=== PATIENT | female | born 1950 | race Caucasian/White ===

== ENCOUNTER 2019-03-05 10:10 | Emergency (ER) | payer MEDICARE ==
[2019-03-05] MEDS ORDERED: Albuterol/Ipratropium 3.0-0.5 MG/3 ML Neb Soln NEB ONE (10:55)
--- NOTE | 2019-03-05 11:01 | EDM.PDOC ---
ED HPI GENERAL MEDICAL PROBLEM - General Chief Complaint: Respiratory Problem Stated Complaint: PNEUMONIA Time Seen by Provider: 03/05/19 10:59 Source of Information: Reports: Patient History Limitations: Reports: No Limitations - History of Present Illness INITIAL COMMENTS - FREE TEXT/NARRATIVE: pt was seen yesterday and was told she had a pneumonia. She was placed on predisone and a z pack, Onset: Gradual, Other (pt did not sleep all nite. ) Duration: Hour(s): Location: Reports: Chest Associated Symptoms: Reports: Cough, Diaphoresis, Fever/Chills, Malaise, Shortness of Breath - Related Data Allergies Allergy/AdvReac Type Severity Reaction Status Date / Time codeine Allergy Cannot Verified 03/05/19 10:55 Remember morphine Allergy Cannot Verified 03/05/19 10:55 Remember Home Meds: Home Meds Albuterol Sulfate [Albuterol Sulfate Hfa] 1 - 2 puff IN ASDIRECTED PRN 03/05/19 [History] Aspirin 81 mg PO DAILY 03/05/19 [History] Azithromycin 250 mg PO DAILY 03/05/19 [History] Cholecalciferol (Vitamin D3) [Vitamin D3] 1,000 unit PO DAILY 03/05/19 [History] [place]-3/DHA/Epa/Fish Oil [[place]-3 Fish Oil 1,000 MG Sfgl] 1,000 mg PO DAILY 06/19 [History] Simvastatin 10 mg PO DAILY 03/05/19 [History] Ubidecarenone [Coq-10] 100 mg PO DAILY 03/05/19 [History] hydroCHLOROthiazide [Hydrochlorothiazide] 12.5 mg PO DAILY 03/05/19 [History] predniSONE 20 mg PO DAILY 03/05/19 [History] ED ROS GENERAL - Review of Systems Review Of Systems: See Below Constitutional: Reports: Fever, Chills, Malaise HEENT: Reports: No Symptoms Respiratory: Reports: Shortness of Breath, Wheezing, Cough Cardiovascular: Reports: No Symptoms Endocrine: Reports: No Symptoms GI/Abdominal: Reports: No Symptoms : Reports: No Symptoms Musculoskeletal: Reports: No Symptoms Skin: Reports: No Symptoms ED EXAM, GENERAL - Physical Exam Exam: See Below Free Text/Narrative:: pt arrived with a marked cough that will not allow her to sleep. She was seen yesterday and was placed on predisone and on zithromax. She had a very bad nite. Exam Limited By: No Limitations General Appearance: Alert, Anxious, Moderate Distress Ears: Normal TMs Nose: Normal Inspection Throat/Mouth: Normal Inspection Head: Atraumatic Neck: Normal Inspection Respiratory/Chest: Decreased Breath Sounds, Rales, Wheezing Cardiovascular: Regular Rate, Rhythm, Tachycardia GI/Abdominal: Soft, Non-Tender (Female) Exam: Deferred Rectal (Female) Exam: Deferred Back Exam: Normal Inspection Extremities: Normal Inspection Neurological: Alert, Oriented, Normal Cognition Psychiatric: Normal Affect Course - Vital Signs Last Recorded V/S: Last Vital Signs Temp 36.3 C 03/05/19 11:00 Pulse 68 03/05/19 11:00 Resp 24 H 03/05/19 11:00 BP 128/86 03/05/19 11:00 Pulse Ox 98 03/05/19 11:00 - Orders/Labs/Meds Orders: Active Orders 24 hr Category Date Time Status RT Aerosol Therapy [RC] ASDIRECTED Care 03/05/19 10:55 Active RT Aerosol Therapy [RC] ASDIRECTED Care 03/05/19 13:38 Active Labs: Laboratory Tests 03/05/19 03/05/19 Range/Units 11:10 11:10 WBC 18.8 H (4.5-11.0) K/uL RBC 3.62 (3.30-5.50) M/uL Hgb 11.6 L (12.0-15.0) g/dL Hct 35.2 L (36.0-48.0) % MCV 97 (80-98) fL MCH 32 H (27-31) pg MCHC 33 (32-36) % Plt Count 291 (150-400) K/uL Neut % (Auto) 81 H (36-66) % Lymph % (Auto) 11 L (24-44) % [place] % (Auto) 8 H (2-6) % Eos % (Auto) 0 L (2-4) % Baso % (Auto) 0 (0-1) % Sodium 135 L (140-148) mmol/L Potassium 3.3 L (3.6-5.2) mmol/L Chloride 99 L (100-108) mmol/L Carbon Dioxide 25 (21-32) mmol/L Anion Gap 14.3 H (5.0-14.0) mmol/L BUN 20 H (7-18) mg/dL Creatinine 1.3 H (0.6-1.0) mg/dL Est Cr Clr Drug Dosing 28.92 mL/min Estimated GFR (MDRD) 40 L (>60) Glucose 145 H (74-106) mg/dL Calcium 8.8 (8.5-10.1) mg/dL Total Bilirubin 0.2 (0.2-1.0) mg/dL AST 17 (15-37) U/L ALT 28 (12-78) U/L Alkaline Phosphatase 69 (46-116) U/L Total Protein 7.7 (6.4-8.2) g/dL Albumin 3.2 L (3.4-5.0) g/dL Globulin 4.5 H (2.3-3.5) g/dL Albumin/Globulin Ratio 0.7 L (1.2-2.2) Meds: Medications Discontinued Medications Generic Name Dose Route Start Last Admin Trade Name Freq PRN Reason Stop Dose Admin Albuterol 2.5 mg 03/05/19 13:37 03/05/19 13:52 Proventil Neb Soln [facility] 03/05/19 13:38 2.5 mg ONETIME ONE Administration Albuterol/Ipratropium 3 ml 03/05/19 10:55 03/05/19 11:07 Duoneb 3.0-0.5 Mg/3 Ml NEB 03/05/19 10:56 3 ml ONETIME ONE Administration Benzonatate 200 mg 03/05/19 12:06 03/05/19 12:14 Tessalon Perles PO 03/05/19 12:07 200 mg ONETIME ONE Administration Sodium Chloride 1,000 mls @ 999 mls/hr 03/05/19 12:00 03/05/19 12:36 Normal Saline IV 999 mls/hr ASDIRECTED SANDI Administration Ceftriaxone Sodium 1 gm/ 50 mls @ 100 mls/hr 03/05/19 12:07 03/05/19 12:35 Sodium Chloride IV 03/05/19 12:36 100 mls/hr ONETIME ONE Administration Lorazepam 0.5 mg 03/05/19 12:06 03/05/19 12:36 Ativan IVPUSH 03/05/19 12:07 0.5 mg ONETIME ONE Administration Methylprednisolone Sodium Succinate 125 mg 03/05/19 12:05 03/05/19 12:35 Solu-Medrol IVPUSH 03/05/19 12:06 125 mg ONETIME ONE Administration - Re-Assessments/Exams Free Text/Narrative Re-Assessment/Exam: 03/05/19 14:44 pt was given solumedrol 125 iv, 1 liter of fluids, tesslon perles, 2 nebs. She is still having some coughing. She is oxgenating well. Departure - Departure Time of Disposition: 14:45 Disposition: Home, Self-Care 01 Condition: Fair Clinical Impression: Bronchitis, Dehydration, Bronchospasm - Discharge Information Instructions: Bronchospasm, Adult, [id number] Referrals: PCP,None [Primary Care Provider] - Forms: ED Department Discharge Care Plan Goals: push fluids, cool mist humidifier at the bedside, tesslon perles 200mg q6h to suppress cough, contine predisone and zithromax, use the small ad operations intern on her inhaler--2 puffs q6h regularly, rtc if not better in next 2 days. ativan 1 mg hs for next 4-5 nites. #8 Sepsis Event Note - Focused Exam Date Exam was Performed: 03/06/19 Time Exam was Performed: 07:53 - My Orders Last 24 Hours: My Active Orders 03/05/19 10:55 RT Aerosol Therapy [RC] ASDIRECTED 03/05/19 13:38 RT Aerosol Therapy [RC] ASDIRECTED - Assessment/Plan Last 24 Hours: My Active Orders 03/05/19 10:55 RT Aerosol Therapy [RC] ASDIRECTED 03/05/19 13:38 RT Aerosol Therapy [RC] ASDIRECTED
--- NOTE | 2019-03-05 11:41 | CRLCR ---
INDICATION: 2 views- SOB and cough TECHNIQUE: Chest 2 views. COMPARISON: None. FINDINGS: Cardiovascular and mediastinum: Heart size and vasculature are normal in caliber and appearance. Mediastinum is within normal limits. Lungs and pleural spaces: Lungs are clear. No sign of infiltrate or mass. No sign of pleural effusion. No pneumothorax. Bones and soft tissues: No significant findings. IMPRESSION: Unremarkable chest. Dictated by: Wally Jackson MD @ 03/05/2019 11:39:35 (Electronically Signed)
[2019-03-05] MEDS ORDERED: Sodium Chloride 0.9% 1,000 ML IV SCH (12:00)
[2019-03-05] MEDS ORDERED: methylPREDNISolone Sodium Succinate 125 MG/2 ML SDV IVPUSH ONE (12:05)
[2019-03-05] MEDS ORDERED: LORazepam 2 MG/ML SDV IVPUSH ONE (12:06)
[2019-03-05] MEDS ORDERED: Benzonatate 100 MG Cap PO ONE (12:06)
[2019-03-05] MEDS ORDERED: cefTRIAXone 1 GM in Sodium Chloride 0.9% 50 ML IV ONE (12:07)
[2019-03-05] MEDS ORDERED: Albuterol 0.083% 2.5 MG/3 ML Neb Soln NEB ONE (13:37)
== END 2019-03-05 15:20 | disposition home or self-care (01) ==
LOC: JP.ED 10:10
DX: J40 Bronchitis, not specified as acute or chronic (principal); J98.01 Acute bronchospasm; E86.0 Dehydration; Z88.5 Allergy status to narcotic agent; Z79.82 Long term (current) use of aspirin
CPT/HCPCS: 36415; 71046; 80053; 85025; 87804; 94640; 96365; 96375; 99284; 99285; A9270; J0696; J2060; J2930; J7030; J7050; J7620-GY

== ENCOUNTER 2019-12-15 10:19 | Emergency (ER) | payer MEDICARE ==
[2019-12-15] MEDS ORDERED: HYDROmorphone 1 MG/ML Syringe IM ONE (11:08)
--- NOTE | 2019-12-15 11:27 | EDM.PDOC ---
<Surekha Adams - Last Filed: 12/15/19 12:09> ED HPI GENERAL MEDICAL PROBLEM - General Chief Complaint: Back Pain or Injury Stated Complaint: FELL ON RAMP COMING OUT OF THE HOUSE, RIGHT SIDE Time Seen by Provider: 12/15/19 10:45 Source of Information: Reports: Patient, Family, RN, RN Notes Reviewed History Limitations: Reports: No Limitations - History of Present Illness INITIAL COMMENTS - FREE TEXT/NARRATIVE: Pt here with spouse. Pt fell on rubber mat on handicap ramp at home from a layer molina on rubber mat. Pt fell on butt and has 7/10 pain to right lower back. Sensation to extremities intact. Limited ROM with legs due to pain right lower back/pelvis. Onset: Today, Sudden Onset Date: 12/15/19 Onset Time: 10:00 Location: Reports: Back, Pelvis Quality: Reports: Sharp, Stabbing Severity: Severe - Related Data Allergies Allergy/AdvReac Type Severity Reaction Status Date / Time codeine Allergy Cannot Verified 03/05/19 10:55 Remember morphine Allergy Cannot Verified 03/05/19 10:55 Remember Home Meds: Home Meds Albuterol Sulfate [Albuterol Sulfate Hfa] 1 - 2 puff IN ASDIRECTED PRN 03/05/19 [History] Aspirin 81 mg PO DAILY 03/05/19 [History] Azithromycin 250 mg PO DAILY 03/05/19 [History] Cholecalciferol (Vitamin D3) [Vitamin D3] 1,000 unit PO DAILY 03/05/19 [History] [place]-3/DHA/Epa/Fish Oil [[place]-3 Fish Oil 1,000 MG Sfgl] 1,000 mg PO DAILY 03/05/19 [History] Simvastatin 10 mg PO DAILY 03/05/19 [History] Ubidecarenone [Coq-10] 100 mg PO DAILY 03/05/19 [History] hydroCHLOROthiazide [Hydrochlorothiazide] 12.5 mg PO DAILY 03/05/19 [History] Past Medical History Cardiovascular History: Reports: High Cholesterol, Hypertension - Past Surgical History HEENT Surgical History: Reports: Cataract Surgery Social & Family History - Tobacco Use Tobacco Use Status *Q: Never Tobacco User ED ROS GENERAL - Review of Systems Review Of Systems: See Below Constitutional: Reports: No Symptoms HEENT: Reports: No Symptoms Respiratory: Reports: No Symptoms Cardiovascular: Reports: No Symptoms Endocrine: Reports: No Symptoms GI/Abdominal: Reports: No Symptoms Musculoskeletal: Reports: Back Pain, Muscle Pain (Right lower back) Skin: Reports: No Symptoms Neurological: Reports: No Symptoms Psychiatric: Reports: No Symptoms Hematologic/Lymphatic: Reports: No Symptoms Immunologic: Reports: No Symptoms ED EXAM,LOWER BACK PAIN/INJURY - Physical Exam Exam: See Below Exam Limited By: No Limitations General Appearance: Alert, WD/WN, Moderate Distress Head: Normocephalic Neck: Normal Inspection, Full Range of Motion Respiratory/Chest: No Respiratory Distress, Lungs Clear (Female) Exam: Deferred Rectal (Female) Exam: Deferred Back Exam: Decreased Range of Motion, Muscle Spasm, Vertebral Tenderness (R lower back/pelvis from fall) Extremities: Other (When moves BL legs pain is worse in R back/pelvis) Neurological: Alert, Normal Mood/Affect Psychiatric: Normal Affect Skin Exam: Warm, Dry Lymphatic: No Adenopathy Departure - Departure Disposition: Home, Self-Care 01 Condition: Fair Clinical Impression: Contusion of lower back Qualifiers: Encounter type: initial encounter Qualified Code(s): S30.0XXA - Contusion of lower back and pelvis, initial encounter - Discharge Information *PRESCRIPTION DRUG MONITORING PROGRAM REVIEWED*: Not Applicable *COPY OF PRESCRIPTION DRUG MONITORING REPORT IN PATIENT OC: Not Applicable Instructions: Contusion, [id number], How to Use Cold Therapy Referrals: Pavithra Barnett MD [Primary Care Provider] - Forms: ED Department Discharge Care Plan Goals: Please use ice or heat for comfort to help with the pain You may take 800 mg by mouth Ibuprofen every 6 hours for pain. you can take the Hyderocodone at the same time. Stay active which will help the pain. Eat a diet high infiber to avoid constipation that may happen from pain medication. should the condition worsen, please come back to the ER or follow up with your provider. Sepsis Event Note (ED) - Evaluation Sepsis Screening Result: No Definite Risk - Assessment/Plan Plan: Please use ice or heat for comfort to help with the pain You may take 800 mg by mouth Ibuprofen every 6 hours for pain. you can take the Hyderocodone at the same time. Stay active which will help the pain. Eat a diet high infiber to avoid constipation that may happen from pain medication. should the condition worsen, please come back to the ER or follow up with your provide <Alessandro Mendez - Last Filed: 12/15/19 12:55> Course - Vital Signs Last Recorded V/S: Last Vital Signs Temp 96.8 F L 12/15/19 10:52 Pulse 72 12/15/19 10:52 Resp 16 12/15/19 10:52 BP 146/63 H 12/15/19 10:52 Pulse Ox 97 12/15/19 10:52 - Orders/Labs/Meds Meds: Medications Discontinued Medications Generic Name Dose Route Start Last Admin Trade Name Natalie PRN Reason Stop Dose Admin Hydromorphone HCl 1 mg 12/15/19 11:08 12/15/19 11:13 Dilaudid IM 12/15/19 11:09 1 mg ONETIME ONE Administration - Re-Assessments/Exams Free Text/Narrative Re-Assessment/Exam: 12/15/19 12:20 CT of the lumbar spine and pelvis showed no evidence facture or soft tissue injury such as hematoma. This was discussed with the patient, she will increase activity as tolerated and take a combination of hydrocodone and anti- inflammatories for pain control. Recheck early next week if not improved satisfactorily. A physical therapy consultation may be needed. She can turn sooner if worsening despite treatment. Departure - Departure Time of Disposition: 12:35 Sepsis Event Note (ED) - Focused Exam Vital Signs: Vital Signs Temp Pulse Resp BP Pulse Ox 12/15/19 10:52 96.8 F L 72 16 146/63 H 97 Attestation - Student - Attestation Statement Attestation Statement: I personally performed or re-performed the physical examination and medical decision making. I have verified all student documentation or findings, including history, physical exam and/or medical decision making.
--- NOTE | 2019-12-15 12:54 | CT ---
Lumbar Spine wo Cont, Pelvis wo Cont CLINICAL HISTORY: Fall, pain COMPARISON: None TECHNIQUE: Multiple contiguous axial sections were obtained of the lumbar spine without the IV infusion of contrast material This was followed by sagittal and coronal MPRs. Auto dosage reduction and iterative reconstruction techniques employed. FINDINGS: Sagittal images show the vertebral body heights to be maintained throughout. Disc spaces are maintained. Alignment is intact. Pedicles transverse and spinous processes appear intact. There is mild concentric disc bulging diffusely throughout. There is some mild osteoarthritis throughout the facets. This causes some central canal stenosis at L4-5 IMPRESSION: No fracture or dislocation There is some concentric disc bulging throughout the lumbar spine as well as some facet hypertrophy. Mild central canal stenosis at L4-5 Lumbar Spine wo Cont, Pelvis wo Cont CLINICAL HISTORY: Fall, pain COMPARISON: None TECHNIQUE: Multiple contiguous axial sections were obtained from the level of the iliac crests down to the pubic symphysis without IV contrast. Oral contrast was not administered. From these images 3D reconstructions were obtained and reviewed on a dedicated and independent workstation. Auto dosage reduction and iterative reconstruction techniques employed. FINDINGS: No acute fracture is identified. There is some ossific density off the right initial tuberosity which is likely related to an old injury. Some mild joint space narrowing and both hips with mild acetabular spurring. Proximal femurs are intact. There is some sclerosis at both SI joints. The there is some angulation at the proximal coccygeal segments. This is likely of remote chronology. IMPRESSION: No acute fracture or dislocation. 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
== END 2019-12-15 12:35 | disposition home or self-care (01) ==
LOC: JP.ED 10:19
DX: S30.0XXA Contusion of lower back and pelvis, initial encounter (principal); I10 Essential (primary) hypertension; E78.00 Pure hypercholesterolemia, unspecified; Z88.5 Allergy status to narcotic agent; Z79.82 Long term (current) use of aspirin; Z79.899 Other long term (current) drug therapy; W17.89XA Other fall from one level to another, initial encounter; Y92.009 Unspecified place in unspecified non-institutional (private) residence as the place of occurrence of the external cause
CPT/HCPCS: 72131; 72192; 96372; 99283; J1170

== ENCOUNTER 2020-04-03 08:34 | Inpatient (IN) | payer MEDICARE ==
[~2020-04-03 08:34] MED LIST: Lidocaine 1% 20 ML MDV INJECT ONE
[2020-04-03] MEDS ORDERED: Sodium Chloride 0.9% 1,000 ML IV SCH (09:15)
[2020-04-03] MEDS ORDERED: Lidocaine 1% 20 ML MDV INJECT ONE (10:27)
[2020-04-03] MEDS ORDERED: Acetaminophen 325 MG Tab PO PRN (11:20)
--- NOTE | 2020-04-03 12:50 | CR ---
CHEST: Expiration Portable 04/03/2020 at 12 noon CLINICAL HISTORY:Postbiopsy COMPARISON:None FINDINGS: There is a small apical pneumothorax. Maximum distance is 1.4 cm. There is some subcutaneous emphysema in the left lateral chest wall. There is no shift of the mediastinum. IMPRESSION: Small left apical pneumothorax following lung biopsy Subcutaneous emphysema left lateral chest wall Repeat chest x-ray due in 1.5 hours
--- NOTE | 2020-04-03 13:58 | CR ---
CHEST: Portable expiration at 04/03/2020 and 1:37 PM CLINICAL HISTORY:Post left lung biopsy COMPARISON:Earlier same day FINDINGS: There is a persistent stable left apical pneumothorax. There is some increase in subcutaneous air in the left lateral chest. Impression: Stable small apical pneumothorax Increasing subcutaneous emphysema left chest
--- NOTE | 2020-04-03 14:18 | CT ---
Biopsy Pleura Lt, Guide CLINICAL HISTORY: Left upper lobe nodule PROCEDURE: After informed consent was signed the patient was scanned in the right lateral decubitus position with a localizer grid and the left lung target lesion was localized and the skin was marked. The patient was sterilely draped and prepped in the usual fashion and 1% Xylocaine local anesthetic was administered through the needle path from skin to chest wall. A 19-gauge guide needle was passed through the upper lateral chest subcutaneous tissue to the chest wall. Additional anesthesia was applied to the chest wall and pleural surfaces. Guide needle was then advanced in a stepwise fashion toward the nodule using CT guidance. There was patient change in position when the needle was there the chest wall. It was withdrawn. The new skin access site was selected slightly caudal to the initial. The guide needle was then advanced under CT guidance to the chest wall followed by additional Xylocaine anesthesia. Needle was advanced to near the nodule. Angle with change slightly and advanced to the nodule margin. A 20-gauge [employer] core biopsy needle was then advanced to the hub. Biopsy was obtained and submitted formalin. This was repeated a second time. This contains only scant material. A third pass was then obtained with the tissue similar to the first pass. Guide needle was then removed. The specimen was sent to pathology. Postprocedure scan showed a small pneumothorax of just a few millimeters. There is a small area of hemorrhage near the nodule. Patient was returned to the postprocedural nursing area. Follow-up expiration chest x-ray is pending. IMPRESSION: CT-guided biopsy was performed on the left upper lobe nodule. Small postprocedural pneumothorax to be followed Small area of parenchymal hemorrhage.
--- NOTE | 2020-04-03 15:21 | CR ---
CHEST: AP expiration CLINICAL HISTORY:Post lung biopsy COMPARISON:Earlier same day FINDINGS: There is a persistent small apical pneumothorax. This may have increased slightly since prior study. There is a increase in subcutaneous emphysema on the left lateral chest when compared to prior study. IMPRESSION: Slight increase in size of left the apical pneumothorax Increasing subcutaneous emphysema left chest Patient was experiencing increasing left chest pain since the biopsy. Dr. Guzman was notified by phone at the time of this dictation. The patient will be admitted for overnight observation.
[2020-04-03] MEDS ORDERED: HYDROmorphone/Normal Saline 15 MG/30 ML PCA IV PRN (16:12)
[2020-04-03] MEDS: Dextrose 5%-Lactated Ringers 1,000 ML IV SCH (16:24)
[2020-04-03] MEDS ORDERED: Naloxone 0.4 MG/ML SDV IV PRN (17:00)
[2020-04-03] MEDS: Ondansetron 4 MG/2 ML SDV IVPUSH PRN (21:18)
[2020-04-04] MEDS: Dextrose 5%-Lactated Ringers 1,000 ML IV SCH ×2 (02:53→14:01)
[2020-04-04] MEDS ORDERED: Albuterol/Ipratropium 3.0-0.5 MG/3 ML Neb Soln INH PRN (07:35)
[2020-04-04] MEDS ORDERED: Saliva Substitute Oral Spray 120 ML Bottle MUCMEM PRN (07:36)
[2020-04-04] MEDS ORDERED: buPROPion 150 MG Tab.ER PO SCH (09:00)
[2020-04-04] MEDS ORDERED: Hydrochlorothiazide 12.5 MG Cap PO SCH (09:00)
[2020-04-04] MEDS ORDERED: Aspirin 81 MG Tab.EC PO SCH (09:00)
[2020-04-04] MEDS: Acetaminophen/HYDROcodone 325-5 MG Tab PO PRN ×3 (09:03→18:57)
[2020-04-04] MEDS: Ibuprofen 200 MG Tab PO SCH ×3 (09:03→21:47)
[2020-04-04] MEDS: Albuterol/Ipratropium 3.0-0.5 MG/3 ML Neb Soln INH SCH ×3 (10:36→20:18)
--- NOTE | 2020-04-04 10:44 | CRLCR ---
Indication: Follow-up pneumothorax Technique: Two views of the chest were acquired Comparison: April 03, 2020 Findings: Heart size normal. Right lung and right pleural space within normal limits. Subcutaneous emphysema on the left. Patchy atelectasis on the left. There is a tiny pneumothorax visible on this study. It appears as a small sliver of air just above the aortic knob. No new osseous findings Impression: Tiny left pneumothorax. Dictated by Doc Wellington MD @ Apr 04 2020 10:34AM Signed by Dr. Doc Wellington @ Apr 04 2020 10:42AM
[2020-04-04] MEDS: Ondansetron 4 MG/2 ML SDV IVPUSH PRN (15:23)
[2020-04-04] MEDS ORDERED: Simvastatin 20 MG Tab PO SCH (21:00)
[2020-04-05] MEDS: Ibuprofen 200 MG Tab PO SCH (03:00)
[2020-04-05] MEDS: Acetaminophen/HYDROcodone 325-5 MG Tab PO PRN (04:49)
[2020-04-05] MEDS: Albuterol/Ipratropium 3.0-0.5 MG/3 ML Neb Soln INH SCH (07:34)
--- NOTE | 2020-04-05 08:13 | DISCH ---
ADMISSION DIAGNOSES: 1. Spiculated mass left lung suspicious for underlying malignancy. 2. Hypertension. 3. Hyperlipidemia. 4. Postural imbalance. 5. Functional weakness. 6. Mixed stress and urge urinary incontinence. 7. History of smoking. DISCHARGE DIAGNOSES: 1. Biopsy left upper lobe nodule. 2. Small pneumothorax few millimeters. Date of left pleural biopsy 04/03/2020. HISTORY: Radha had a biopsy of her left upper lung nodule, which resulted in a small pneumothorax. She was admitted on 04/03/2020. She had a series of chest x-ray and vital signs did remain stable and she was able to be discharged to home on 04/05/2020. PHYSICAL EXAMINATION: GENERAL: Radha Noel is a pleasant 69-year-old female. VITAL SIGNS: Height 4 feet 11.84 inches, weight is 202 pounds. TPR is 97.8, 68, 18, blood pressure 108/46. HEENT: Negative. NECK: Supple. HEART: Regular rate and rhythm. LUNGS: Clear. Dressing removed from left biopsy site. ABDOMEN: Negative. EXTREMITIES: Without peripheral edema. DISPOSITION: Discharged to home. CONDITION: Stable and improving. FOLLOWUP APPOINTMENT: With Doc Guzman MD, on 04/11/2020 at 10:15 a.m. She is to arrive at the clinic at 9:45 for a chest x-ray PA and lateral prior to that appointment. HOME MEDICATIONS: [place] 5/325 mg 1 to 2 tabs q.6 hours p.r.n. pain. She is to resume her home medications, Wellbutrin 150 mg daily, hydrochlorothiazide 12.5 mg daily, CoQ10 100 mg daily, simvastatin 10 mg p.o. daily, omega-3 fish oil 1000 mg p.o. daily, Ativan 1 mg p.o. at bedtime, ibuprofen 200 mg p.r.n., vitamin D3 1000 international units daily, Cepacol throat lozenges 1 as directed, aspirin 81 mg daily, DuoNeb 3 mL inhalation every 4 hours p.r.n. shortness of breath, albuterol sulfate 1 to 2 puffs as directed p.r.n. DIET: Regular diet. Drink 8 to 10 glasses of water a day. ACTIVITY: As tolerated. Shower/bathing: May shower. DISCHARGE INSTRUCTIONS: Wound incision care: Keep operative site clean and dry. Notify provider if any fever, increased pain, nausea, or vomiting. Other instructions: Use incentive spirometer 10 times every hour while awake for 1 week. /[id number]
--- NOTE | 2020-04-05 09:16 | CR ---
CHEST: 2 view CLINICAL HISTORY:Follow-up pneumothorax COMPARISON:04/04/2020 FINDINGS: There appears to be a minimal left apical pneumothorax remaining. Lung tellez are clear. There is subcutaneous emphysema in the left chest soft tissues. This is similar to prior study. IMPRESSION: Persistent minimal left apical pneumothorax suspected Persistent subcutaneous emphysema similar to prior study
--- NOTE | 2020-04-06 08:19 | PN ---
DATE OF SERVICE: 04/04/2020 The patient was admitted overnight with pneumothorax following lung biopsy. Her chest x-ray looks fine. She does desaturate quite a bit when she is up and moving and she has had quite a bit of nausea overnight. Will need to keep her today, work on the nausea. 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 We will start her on [place] and begin a regular diet as tolerated and recheck a chest x-ray tomorrow morning. As mentioned above, will be ready for discharge home tomorrow. Doc Guzman MD /[id number]
--- NOTE | 2020-04-06 10:22 | HP ---
HISTORY OF PRESENT ILLNESS: This is a 69-year-old who was admitted for a lung biopsy, developed pneumothorax along with quite a bit in the way of subcutaneous emphysema. From a respiratory standpoint, she is doing well but has quite a bit in the way of pain and will be admitted for pain control as well as observation with subsequent followup chest x-rays. The lung mass is a 7 mm spiculated mass in the left upper lobe. On PET scan, this did not have significant uptake, but may be due to a small size and/or indolent metabolic rate, and the pathology on this is obviously pending. The patient's past medical history includes some obesity, history of smoking, hypertension, hyperlipidemia, hip arthritis, some mixed stress and urgency incontinence associated with pelvic floor dysfunction. MEDICATIONS AND ALLERGIES: As per the summary on the computer. FAMILY HISTORY: Includes cardiovascular disease, diabetes, breast cancer, and leukemia. SOCIAL HISTORY: The patient continues to be a daily smoker. Alcohol intake is minimal. REVIEW OF SYSTEMS: Relatively unremarkable other than for the ongoing discomfort related to the lung biopsy. PHYSICAL EXAMINATION: GENERAL: The patient is alert with stable vital signs. HEENT: Unremarkable. HEART: Regular rate and rhythm. Normal S1 and S2. LUNGS: Show clear lung tellez. They are somewhat diminished on the left, which maybe related to the subcutaneous emphysema, which is fairly significant on the left side. EXTREMITIES: Unremarkable. PELVIC AND RECTAL: Deferred. DATA: Chest x-ray shows a small pneumothorax with more significant subcutaneous emphysema. PLAN: The plan at this point would be to admit the patient for pain control as well as watching the size of pneumothorax short of breath, we will repeat a chest x-ray in the morning. If she does decompensate in terms of respiratory status, then a chest tube insertion would be necessary. Otherwise, we will await the lung biopsy report, which should be available later this week. Doc Guzman MD /[id number]
== END 2020-04-05 09:32 | disposition home or self-care (01) | DRG 165 ==
LOC: JP.CT 08:34 → JP.ICU 16:11 → OBSVTOIN 04-04 07:05 → JP.MS 04-04 12:54
PROVIDERS: ADMIT Surgery; ATTEND Surgery
PROC: 0BC Respiratory System, Extirpation (ICD-10-PCS; principal; 2020-04-03)
DX: J95.811 Postprocedural pneumothorax (principal); R91.8 Other nonspecific abnormal finding of lung field; F17.210 Nicotine dependence, cigarettes, uncomplicated; R05 Cough; E66.9 Obesity, unspecified; Z80.3 Family history of malignant neoplasm of breast; Z79.82 Long term (current) use of aspirin; R26.89 Other abnormalities of gait and mobility; N39.46 Mixed incontinence; Z79.899 Other long term (current) drug therapy; Z68.39 Body mass index [BMI] 39.0-39.9, adult; E78.5 Hyperlipidemia, unspecified; I10 Essential (primary) hypertension; E66.01 Morbid (severe) obesity due to excess calories; Z68.35 Body mass index [BMI] 35.0-35.9, adult; R11.0 Nausea
CPT/HCPCS: 32400 ×2; 51798; 71045 ×6; 71046; 77012 ×2; 88305; 96374; A9270; G0378 ×3; J1170; J2405; J7030; J7121 ×2; 94640; 94762; J2001; J7620-GY

== ENCOUNTER 2020-12-08 10:30 | Emergency (ER) | payer MEDICARE ==
--- NOTE | 2020-12-08 11:26 | EDM.PDOC ---
ED HPI GENERAL MEDICAL PROBLEM - General Chief Complaint: Chest Pain Stated Complaint: CHEST PAIN Time Seen by Provider: 12/08/20 11:00 Source of Information: Reports: Patient, Family History Limitations: Reports: No Limitations - History of Present Illness INITIAL COMMENTS - FREE TEXT/NARRATIVE: 70-year-old female with diffuse arthritis, also polymyalgia rheumatica, just saw the machine cleaner within the last few days but woke up this morning with significant chest pain with breathing radiating through to her back. She was very uncomfortable, intermittent cough but no fever or chills. There was a concern for cardiac source of pain. Onset: Sudden (Started fairly suddenly last evening) Duration: Hour(s): (Been bothering her for 12 hours, hurts to take a deep breath or turn to the right) Location: Reports: Chest Quality: Reports: Sharp, Stabbing Severity: Moderate Worsens with: Reports: Breathing, Movement Associated Symptoms: Reports: No Other Symptoms Middle Chest Pain Score (Numeric/FACES): 4 - Related Data Allergies Allergy/AdvReac Type Severity Reaction Status Date / Time codeine Allergy Rash Verified 12/08/20 10:55 morphine Allergy Rash Verified 12/08/20 10:55 Home Meds: Home Meds Albuterol Sulfate [Albuterol Sulfate Hfa] 1 - 2 puff IN ASDIRECTED PRN 03/05/19 [History] Aspirin 81 mg PO DAILY 03/05/19 [History] Cholecalciferol (Vitamin D3) [Vitamin D3] 1,000 unit PO DAILY 03/05/19 [History] [place]-3/DHA/Epa/Fish Oil [[place]-3 Fish Oil 1,000 MG Sfgl] 1,000 mg PO DAILY 03/05/19 [History] Simvastatin 10 mg PO DAILY 03/05/19 [History] Ubidecarenone [Coq-10] 100 mg PO DAILY 03/05/19 [History] hydroCHLOROthiazide [Hydrochlorothiazide] 25 mg PO DAILY 03/05/19 [History] Albuterol/Ipratropium [DuoNeb 3.0-0.5 MG/3 ML] 3 ml INH Q4H PRN 04/03/20 [History] Ibuprofen 200 mg PO Q6HR PRN MDD T-7 04/03/20 [History] Alendronate Sodium [Fosamax] 70 mg PO ASDIRECTED 12/08/20 [History] Benzonatate [Tessalon Perle] 100 mg PO DAILY PRN 12/08/20 [History] predniSONE [Prednisone] 40 mg PO DAILY 12/08/20 [History] traMADol [Ultram] 50 mg PO Q8H PRN 12/08/20 [History] traZODone 50 mg PO BEDTIME 12/08/20 [History] Past Medical History HEENT History: Reports: None Cardiovascular History: Reports: High Cholesterol, Hypertension Respiratory History: Reports: COPD, Other (See Below) Other Respiratory History: left lobe mass, 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 Gastrointestinal History: Reports: Cholelithiasis Genitourinary History: Reports: Chronic Renal Insuffiency 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: Dysfunctional Uterine Bleeding, Musculoskeletal History: Reports: Arthritis, Fracture Neurological History: Reports: Headaches, Chronic Psychiatric History: Reports: Anxiety - Infectious Disease History Infectious Disease History: Reports: Chicken Pox, Measles, Mumps - Past Surgical History HEENT Surgical History: Reports: Cataract Surgery, Tonsillectomy Cardiovascular Surgical History: Reports: None Respiratory Surgical History: Reports: Lung Biopsies GI Surgical History: Reports: Cholecystectomy Female Surgical History: Reports: Hysterectomy, Salpingo-Oophorectomy Neurological Surgical History: Reports: None Musculoskeletal Surgical History: Reports: None Social & Family History - Family History Family Medical History: No Pertinent Family History - Tobacco Use Tobacco Use Status *Q: Heavy Tobacco User Years of Tobacco use: 60 Packs/Tins Daily: 0.7 - Caffeine Use Caffeine Use: Reports: None, Coffee - Recreational Drug Use Recreational Drug Use: No ED ROS GENERAL - Review of Systems Review Of Systems: See Below Constitutional: Denies: Fever, Chills, Malaise HEENT: Denies: Vision Change Respiratory: Reports: Pleuritic Chest Pain. Denies: Shortness of Breath Cardiovascular: Reports: Chest Pain. Denies: Palpitations GI/Abdominal: Denies: Abdominal Pain, Nausea, Vomiting Musculoskeletal: Reports: Other (Significant systemic arthritic changes and symptoms) Skin: Reports: No Symptoms Neurological: Reports: Dizziness. Denies: Headache Psychiatric: Reports: Anxiety ED EXAM, GENERAL - Physical Exam Exam: See Below Exam Limited By: No Limitations General Appearance: Alert, No Apparent Distress (Uncomfortable but not distressed), Anxious Eye Exam: Bilateral Eye: Normal Inspection Head: Atraumatic Neck: Non-Tender Respiratory/Chest: Lungs Clear, Other (Chest wall is very sore to palpation anteriorly, especially on the right costochondral junction) Cardiovascular: Regular Rate, Rhythm GI/Abdominal: Soft, Non-Tender Extremities: No: Pedal Edema Neurological: Alert, Oriented Psychiatric: Anxious #1 Interpretation EKG Date: 12/08/20 Rhythm: NSR QRS: Normal ST-T: Normal EKG Interpretation Comments: Frequent PACs but otherwise normal sinus rhythm Course - Vital Signs Last Recorded V/S: Last Vital Signs Temp 97.0 F 12/08/20 10:51 Pulse 67 12/08/20 12:10 Resp 19 12/08/20 11:10 BP 130/73 12/08/20 12:10 Pulse Ox 96 12/08/20 11:10 - Orders/Labs/Meds Orders: Active Orders 24 hr Category Date Time Status Chest 2V [CR] Routine Exams 12/08/20 11:10 Taken Labs: Laboratory Tests 12/08/20 12/08/20 12/08/20 Range/Units 11:25 11:25 11:25 WBC 14.8 H (4.5-11.0) K/uL RBC 4.08 (3.30-5.50) M/uL Hgb 13.9 (12.0-15.0) g/dL Hct 39.8 (36.0-48.0) % MCV 98 (80-98) fL MCH 34 H (27-31) pg MCHC 35 (32-36) % Plt Count 222 (150-400) K/uL Neut % (Auto) 86.8 H (36-66) % Lymph % (Auto) 6.7 L (24-44) % Brown % (Auto) 6.4 H (2-6) % Eos % (Auto) 0.0 L (2-4) % Baso % (Auto) 0.1 (0-1) % Sodium 132 L (140-148) mmol/L Potassium 3.7 (3.6-5.2) mmol/L Chloride 98 L (100-108) mmol/L Carbon Dioxide 24 (21-32) mmol/L Anion Gap 13.7 (5.0-14.0) mmol/L BUN 32 H (7-18) mg/dL Creatinine 1.3 H (0.6-1.0) mg/dL Est Cr Clr Drug Dosing 28.10 mL/min Estimated GFR (MDRD) 40 L (>60) Glucose 243 H (74-106) mg/dL Calcium 8.6 (8.5-10.1) mg/dL Troponin I < 0.017 (0.000-0.056) ng/mL - Re-Assessments/Exams Free Text/Narrative Re-Assessment/Exam: 12/08/20 18:22 2 view chest x-ray, EKG, troponin, CBC and BMP were done. EKG was reassuring, 2 view chest x-ray was stable and showed no acute findings. Labs were also re assuring, patient's pain actually stabilized without treatment. She was diagnosed with a diagnosis of chest wall pain. 12/08/20 18:23 Initial CBC returned with a platelet count of only 5000, but checking clinical records her platelets were normal yesterday so this was repeated and her repeat level was 222,000. Departure - Departure Time of Disposition: 12:52 Disposition: Home, Self-Care 01 Clinical Impression: Chest wall pain, Atypical chest pain - Discharge Information Instructions: Nonspecific Chest Pain, Adult, [id number] Referrals: Pavithra Barnett MD [Primary Care Provider] - Forms: ED Department Discharge Care Plan Goals: Continue your current medications, increase activity as tolerated and return anytime if pain is uncontrollable or you develop other concerns. Otherwise follow-up with your primary providers as planned. Sepsis Event Note (ED) - Evaluation Sepsis Screening Result: No Definite Risk - Focused Exam Vital Signs: Vital Signs Temp Pulse Resp BP Pulse Ox 12/08/20 12:10 67 130/73 12/08/20 11:10 88 19 114/43 L 96 12/08/20 10:51 97.0 F 104 H 19 151/89 H 96 - My Orders Last 24 Hours: My Active Orders 12/08/20 11:10 Chest 2V [CR] Routine - Assessment/Plan Last 24 Hours: My Active Orders 12/08/20 11:10 Chest 2V [CR] Routine
--- NOTE | 2020-12-10 10:00 | CR ---
CHEST: 2 view CLINICAL HISTORY:Dyspnea COMPARISON:CT June 2020 FINDINGS: The heart size, pulmonary vascularity and hilar structures are normal. No infiltrate effusion or pneumothorax is seen. IMPRESSION: No acute cardiopulmonary process.
== END 2020-12-08 12:59 | disposition home or self-care (01) ==
LOC: JP.ED 10:30
DX: R07.89 Other chest pain (principal); I49.1 Atrial premature depolarization; E78.00 Pure hypercholesterolemia, unspecified; I12.9 Hypertensive chronic kidney disease with stage 1 through stage 4 chronic kidney disease, or unspecified chronic kidney disease; N18.9 Chronic kidney disease, unspecified; J44.9 Chronic obstructive pulmonary disease, unspecified; M19.90 Unspecified osteoarthritis, unspecified site; Z88.5 Allergy status to narcotic agent; Z79.82 Long term (current) use of aspirin; Z79.899 Other long term (current) drug therapy
CPT/HCPCS: 36415; 71046; 71046-26; 80048; 84484; 85025; 99285-25

== ENCOUNTER 2021-12-24 08:47 | Emergency (ER) | payer MEDICARE ==
[2021-12-24] MEDS ORDERED: Albuterol/Ipratropium 3.0-0.5 MG/3 ML Neb Soln NEB ONE (09:57)
[2021-12-24 10:37] LABS: CORONAVIRUS COVID-19 NAA NEGATIVE (NEGATIVE)
== END 2021-12-24 11:14 | disposition home or self-care (01) ==
LOC: JP.ED 08:47
DX: J40 Bronchitis, not specified as acute or chronic (principal); I10 Essential (primary) hypertension; F17.210 Nicotine dependence, cigarettes, uncomplicated; Z88.5 Allergy status to narcotic agent; Z88.6 Allergy status to analgesic agent; Z79.899 Other long term (current) drug therapy; Z79.82 Long term (current) use of aspirin; Z90.49 Acquired absence of other specified parts of digestive tract; Z20.822 Contact with and (suspected) exposure to COVID-19
CPT/HCPCS: 0241U; 71046; 94640; 99284; J7620